=== PATIENT | male | born 1940 | race Caucasian/White ===

== ENCOUNTER → 2023-12-10 14:41 | Outpatient (REF) | payer MEDICARE, SELFPAY | LOC: HWRAD 14:41 | PROVIDERS: ATTENDING PHYSICIAN Family Medicine | DX: R91.8 Other nonspecific abnormal finding of lung field (principal) | CPT/HCPCS: 71046 ==

== ENCOUNTER → 2023-12-11 13:39 | Outpatient (REF) | payer MEDICARE, SELFPAY ==
[2023-12-11 16:32] LABS: NT-proBNP 248 pg/ml
== END ==
LOC: HWLAB 13:39
PROVIDERS: ATTENDING PHYSICIAN Family Medicine
DX: R60.0 Localized edema (principal); R91.8 Other nonspecific abnormal finding of lung field
CPT/HCPCS: 36415; 83880

== ENCOUNTER → 2023-12-12 11:16 | Outpatient (REF) | payer MEDICARE, SELFPAY | LOC: HWCARD 11:16 | PROVIDERS: ATTENDING PHYSICIAN Family Medicine | DX: R60.0 Localized edema (principal); Z00.00 Encounter for general adult medical examination without abnormal findings | CPT/HCPCS: 93005 ==

== ENCOUNTER → 2023-12-27 08:58 | Outpatient (REF) | payer MEDICARE, SELFPAY | LOC: HWRCS 08:58 | PROVIDERS: ATTENDING PHYSICIAN Family Medicine | DX: I77.89 Other specified disorders of arteries and arterioles (principal) | CPT/HCPCS: 93306 ==

== ENCOUNTER → 2024-06-15 15:01 | Outpatient (REF) | payer MEDICARE, SELFPAY | LOC: PAVMRI 15:01 | PROVIDERS: ATTENDING PHYSICIAN Orthopaedic Surgery; FAMILY PHYSICIAN Family Medicine | DX: M25.561 Pain in right knee (principal) | CPT/HCPCS: 73721 ==

== ENCOUNTER → 2024-10-19 09:15 | Outpatient (REF) | payer MEDICARE, SELFPAY | LOC: HWRAD 09:15 | PROVIDERS: ATTENDING PHYSICIAN Physician Assistant Medical | DX: J18.9 Pneumonia, unspecified organism (principal) | CPT/HCPCS: 71046 ==